=== PATIENT | male | born 1965 | race African-American/Black ===

== ENCOUNTER 2017-04-14 14:44 | Emergency (ER) | payer MEDICAID ==
[~2017-04-14] VITALS: Ht 170.2 cm; Wt 68.0 kg
[2017-04-14 15:03] VITALS: BP 154/98
== END 2017-04-14 19:33 | disposition left against medical advice (07) ==
LOC: ER 15:03
DX: M54.9 Dorsalgia, unspecified (principal); Z53.21 Procedure and treatment not carried out due to patient leaving prior to being seen by health care provider

== ENCOUNTER 2017-12-09 17:21 | Emergency (ER) | payer MEDICAID ==
[~2017-12-09] VITALS: Ht 182.9 cm; Wt 79.0 kg
[2017-12-09 17:22] VITALS: BP 139/84
== END 2017-12-09 21:45 | disposition left against medical advice (07) ==
LOC: ER 17:21
DX: Z53.21 Procedure and treatment not carried out due to patient leaving prior to being seen by health care provider (principal)
CPT/HCPCS: 82962

== ENCOUNTER 2020-01-12 17:34 | Inpatient (IN) | payer MEDICAID ==
[~2020-01-12] VITALS: Ht 180.3 cm; Wt 46.7 kg
[2020-01-12] MEDS ORDERED: PIPERACILLIN/TAZ 3.375G PREMIX 50 ML IV ONE (19:00)
[2020-01-12] MEDS ORDERED: VANCOMYCIN 1 G PREMIX 200 ML IV ONE (19:00)
[2020-01-12 19:22] LABS: CHLORIDE 117 mEq/L (98-107)
[2020-01-12 19:31] LABS: MEAN CORPUSCULAR HEMOGLOBIN 26.3 pg (28.0-32.0); MEAN CORPUSCULAR VOLUME 83.1 fL (80.0-94.0); MEAN PLATELET VOLUME 7.7 fl (7.4-10.4); PLATELET 266 x1000/uL (130-400); RED CELL DISTRIBUTION WIDTH 26.1 % (11.6-14.6)
[2020-01-12 19:39] LABS: INR 2.2; PARTIAL THROMBOPLASTIN TIME 33.1 sec (23.4-31.0); PROTHROMBIN TIME 22.4 sec (9.6-11.0)
[2020-01-12] MEDS ORDERED: SODIUM CHLORIDE 0.9% 1,000 ML IV ONE (20:05)
[2020-01-12] MEDS ORDERED: MORPHINE SULFATE 4 MG/ML CPJ (NOT FOR IM USE) IV STA (20:13)
[2020-01-12] MEDS ORDERED: ONDANSETRON HCL 4MG/2ML INJ IV STA (20:13)
[2020-01-12 20:39] LABS: HEMATOCRIT. 19.1 % (42.0-52.0); HEMOGLOBIN. 6.1 g/dL (14.0-18.0)
[2020-01-12 20:46] LABS: NUCLEATED RED BLOOD CELLS 2 /100 WBC; PLATELET ESTIMATE NORMAL
[2020-01-12 20:53] LABS: COLOR URINE DARK YELLOW (YELLOW)
[2020-01-12 20:54] LABS: CLARITY URINE CLOUDY (CLEAR); KETONES URINE NEGATIVE (NEGATIVE); NITRITE URINE NEGATIVE (NEGATIVE); OCCULT BLOOD URINE NEGATIVE (NEGATIVE); PH URINE 5.5 (4.5-8.0); PROTEIN URINE 1+ (NEGATIVE); SPECIFIC GRAVITY URINE 1.022 (1.005-1.030)
[2020-01-12 20:55] LABS: LEUKOCYTE ESTERASE URINE TRACE (NEGATIVE)
[2020-01-13 09:00] VITALS: BP 87/48
[2020-01-13] MEDS ORDERED: MIDODRINE HCL 5MG TABLET PO SCH ×2 (09:15→13:00)
[2020-01-13] MEDS: SODIUM CHLORIDE 0.45% 1,000 ML IV SCH ×2 (09:30→18:09)
[2020-01-13] MEDS ORDERED: MORP15TA67 MT (10:23)
[2020-01-13] MEDS ORDERED: MORP100T6 PO (10:23)
[2020-01-13] MEDS: PIPERACILLIN/TAZOBACTAM 2.25 G in DEXTROSE 5% WATER 50 ML IV SCH ×3 (11:14→22:21)
[2020-01-13 12:00] VITALS: BP 82/48
[2020-01-13] MEDS ORDERED: SODIUM CHLORIDE 0.9% 500 ML IV ONE ×2 (12:15→16:15)
[2020-01-13] MEDS: TRAMADOL 50MG TABLET PO PRN (13:40)
[2020-01-13] MEDS: PANTOPRAZOLE SODIUM 40 MG/VIAL IV SCH (15:44)
[2020-01-13 16:04] LABS: CHLORIDE 119 mEq/L (98-107)
[2020-01-13 16:23] LABS: TOTAL IRON BINDING CAPACITY 180 ug/dL (250-450)
[2020-01-13] MEDS: MIDODRINE HCL 5MG TABLET PO SCH (16:24)
[2020-01-13 16:25] LABS: HEMATOCRIT. 25.7 % (42.0-52.0); HEMOGLOBIN. 8.4 g/dL (14.0-18.0); MEAN CORPUSCULAR HEMOGLOBIN 27.4 pg (28.0-32.0); MEAN CORPUSCULAR VOLUME 83.9 fL (80.0-94.0); MEAN PLATELET VOLUME 7.9 fl (7.4-10.4); PLATELET 244 x1000/uL (130-400); RED BLOOD CELL COUNT 3.07 mill/uL (4.7-6.1); RED CELL DISTRIBUTION WIDTH 24.1 % (11.6-14.6)
[2020-01-13 16:40] VITALS: BP 102/62
[2020-01-13 17:40] VITALS: BP 100/67
[2020-01-13 17:47] LABS: NUCLEATED RED BLOOD CELLS 1 /100 WBC; PLATELET ESTIMATE NORMAL
[2020-01-13] MEDS ORDERED: ACETAMINOPHEN 325MG TABLET PO PRN (18:00)
[2020-01-13 20:00] VITALS: BP 98/67
[2020-01-13 21:00] LABS: OPIATES URINE SCREEN PRESUMTIVE POSITIVE (NEGATIVE)
[2020-01-13 21:01] LABS: *AMPHETAMINES SCREEN URINE NEGATIVE (NEGATIVE); *BARBITURATES SCREEN URINE NEGATIVE (NEGATIVE); *BENZODIAZEPINES SCREEN URINE NEGATIVE (NEGATIVE); *COCAINE SCREEN URINE NEGATIVE (NEGATIVE); CANNABINOID URINE SCREEN NEGATIVE (NEGATIVE); METHADONE URINE SCREEN NEGATIVE (NEGATIVE); PHENCYCLIDINE URINE SCREEN NEGATIVE (NEGATIVE)
[2020-01-13] MEDS: MORPHINE SULFATE 2 MG/ML CPJ (NOT FOR IM USE) IV PRN (22:23)
[2020-01-14] VITALS: BP 93/59
[2020-01-14 00:11] LABS: HEMATOCRIT 24.7 % (42.0-52.0)
[2020-01-14 04:00] VITALS: BP 98/67
[2020-01-14] MEDS: PIPERACILLIN/TAZOBACTAM 2.25 G in DEXTROSE 5% WATER 50 ML IV SCH ×2 (04:08→08:46)
[2020-01-14] MEDS: MORPHINE SULFATE 2 MG/ML CPJ (NOT FOR IM USE) IV PRN (04:09)
[2020-01-14 06:24] LABS: HEMOGLOBIN 8.4 g/dL (14.0-18.0)
[2020-01-14] MEDS: SODIUM CHLORIDE 0.45% 1,000 ML IV SCH ×3 (06:52→21:39)
[2020-01-14 08:00] VITALS: BP 117/76
[2020-01-14] MEDS: PANTOPRAZOLE SODIUM 40 MG/VIAL IV SCH (08:46)
[2020-01-14] MEDS: MIDODRINE HCL 5MG TABLET PO SCH ×3 (08:46→18:13)
[2020-01-14 11:40] VITALS: BP 108/70
[2020-01-14] MEDS ORDERED: DIATR MEGLU/DIATRIZOATE SOLN 30ML PO SCH (13:00)
[2020-01-14] MEDS: LOPERAMIDE HCL 2MG CAPSULE PO PRN ×2 (13:06→21:35)
[2020-01-14 14:26] LABS: CHLORIDE 117 mEq/L (98-107)
[2020-01-14 14:30] LABS: HEMATOCRIT. 24.9 % (42.0-52.0); HEMOGLOBIN. 8.1 g/dL (14.0-18.0); MEAN CORPUSCULAR HEMOGLOBIN 27.9 pg (28.0-32.0); MEAN CORPUSCULAR VOLUME 85.4 fL (80.0-94.0); MEAN PLATELET VOLUME 7.9 fl (7.4-10.4); PLATELET 201 x1000/uL (130-400); RED BLOOD CELL COUNT 2.92 mill/uL (4.7-6.1); RED CELL DISTRIBUTION WIDTH 23.9 % (11.6-14.6)
[2020-01-14] MEDS: PIPERACILLIN/TAZOBACTAM 3.375 G in DEXT 5% WATER 100 ML IV SCH ×2 (15:39→21:35)
[2020-01-14 16:00] VITALS: BP 128/71
[2020-01-14 18:55] LABS: HEMATOCRIT 25.2 % (42.0-52.0); HEMOGLOBIN 8.4 g/dL (14.0-18.0)
[2020-01-14] MEDS ORDERED: SODIUM BICARBONATE 8.4% 1 MEQ/ML 50ML SYR IV NR (19:00)
[2020-01-14 20:00] VITALS: BP 120/80
[2020-01-14 23:37] LABS: PLATELET ESTIMATE NORMAL
[2020-01-15] VITALS (13 sets, daily range): BP systolic 97–135; BP diastolic 58–80
[2020-01-15] MEDS: PIPERACILLIN/TAZOBACTAM 3.375 G in DEXT 5% WATER 100 ML IV SCH (03:04)
[2020-01-15] MEDS: LOPERAMIDE HCL 2MG CAPSULE PO PRN (06:49)
[2020-01-15 07:21] LABS: CHLORIDE 115 mEq/L (98-107)
[2020-01-15 07:26] LABS: HEMATOCRIT. 22.3 % (42.0-52.0); HEMOGLOBIN. 7.4 g/dL (14.0-18.0); MEAN CORPUSCULAR HEMOGLOBIN 27.1 pg (28.0-32.0); MEAN CORPUSCULAR VOLUME 82.2 fL (80.0-94.0); MEAN PLATELET VOLUME 7.7 fl (7.4-10.4); PLATELET 140 x1000/uL (130-400); RED BLOOD CELL COUNT 2.72 mill/uL (4.7-6.1)
[2020-01-15] MEDS: SODIUM CHLORIDE 0.45% 1,000 ML IV SCH ×2 (10:19→21:10)
[2020-01-15] MEDS: PANTOPRAZOLE SODIUM 40 MG/VIAL IV SCH (10:20)
[2020-01-15] MEDS: MIDODRINE HCL 5MG TABLET PO SCH ×3 (10:21→19:02)
[2020-01-15] MEDS ORDERED: POTASSIUM CHLORIDE INJ 40 MEQ in DEXT 5% WATER 250 ML IV SCH (11:00)
[2020-01-15 13:17] LABS: PLATELET ESTIMATE NORMAL
[2020-01-15] MEDS: CEFEPIME 1,000 MG in DEXTROSE 5% WATER 50 ML IV SCH ×2 (14:00→22:42)
[2020-01-15] MEDS: METRONIDAZOLE 500 MG PREMIX 100 ML IV SCH ×2 (14:00→21:53)
[2020-01-15] MEDS: MORPHINE SULFATE 2 MG/ML CPJ (NOT FOR IM USE) IV PRN (16:28)
[2020-01-15 23:09] LABS: HEMOGLOBIN 9.6 g/dL (14.0-18.0)
[2020-01-16] VITALS: BP 114/73
[2020-01-16] MEDS: TRAMADOL 50MG TABLET PO PRN (01:25)
[2020-01-16 04:00] VITALS: BP 117/71
[2020-01-16] MEDS: METRONIDAZOLE 500 MG PREMIX 100 ML IV SCH ×3 (06:36→22:17)
[2020-01-16] MEDS: SODIUM CHLORIDE 0.45% 1,000 ML IV SCH ×2 (06:44→17:45)
[2020-01-16 08:00] VITALS: BP 117/69
[2020-01-16] MEDS: PANTOPRAZOLE SODIUM 40 MG/VIAL IV SCH (09:04)
[2020-01-16] MEDS: CEFEPIME 1,000 MG in DEXTROSE 5% WATER 50 ML IV SCH ×2 (09:04→21:39)
[2020-01-16] MEDS: MIDODRINE HCL 5MG TABLET PO SCH ×3 (09:05→17:43)
[2020-01-16 11:22] LABS: HEMATOCRIT. 27.1 % (42.0-52.0); MEAN CORPUSCULAR VOLUME 84.2 fL (80.0-94.0); MEAN PLATELET VOLUME 8.2 fl (7.4-10.4); PLATELET 72 x1000/uL (130-400); RED BLOOD CELL COUNT 3.22 mill/uL (4.7-6.1)
[2020-01-16 11:53] LABS: CHLORIDE 114 mEq/L (98-107)
[2020-01-16 12:00] VITALS: BP 114/80
[2020-01-16] MEDS ORDERED: POTASSIUM CHLORIDE 20MEQ TABLET SR PO SCH (13:30)
[2020-01-16] MEDS ORDERED: DIATR MEGLU/DIATRIZOATE SOLN 30ML PO SCH (15:15)
[2020-01-16 16:00] VITALS: BP 105/70
[2020-01-16] MEDS: MORPHINE SULFATE 2 MG/ML CPJ (NOT FOR IM USE) IV PRN (17:44)
[2020-01-16] MEDS ORDERED: FILGRASTIM 300 MCG/ML VIAL SUBCUT SCH (18:00)
[2020-01-16 20:00] VITALS: BP 111/77
[2020-01-16] MEDS: FILGRASTIM-TBO 300 MCG/0.5 ML SYRINGE SQ SCH (21:39)
[2020-01-16 22:01] LABS: PLATELET ESTIMATE DECREASED
[2020-01-17] VITALS: BP 97/67
[2020-01-17] MEDS ORDERED: IOHEXOL-300 100 ML BOTTLE ONE (00:42)
[2020-01-17 04:00] VITALS: BP 102/71
[2020-01-17] MEDS: METRONIDAZOLE 500 MG PREMIX 100 ML IV SCH ×3 (05:06→22:59)
[2020-01-17] MEDS: SODIUM CHLORIDE 0.45% 1,000 ML IV SCH (05:06)
[2020-01-17] MEDS: MORPHINE SULFATE 2 MG/ML CPJ (NOT FOR IM USE) IV PRN ×3 (05:15→14:26)
[2020-01-17 07:51] LABS: CHLORIDE 118 mEq/L (98-107); HEMATOCRIT. 27.5 % (42.0-52.0); HEMOGLOBIN. 9.2 g/dL (14.0-18.0); MEAN CORPUSCULAR HEMOGLOBIN 28.2 pg (28.0-32.0); MEAN CORPUSCULAR VOLUME 84.4 fL (80.0-94.0); MEAN PLATELET VOLUME 8.5 fl (7.4-10.4); RED BLOOD CELL COUNT 3.26 mill/uL (4.7-6.1); RED CELL DISTRIBUTION WIDTH 23.1 % (11.6-14.6)
[2020-01-17 08:00] VITALS: BP 93/63
[2020-01-17 08:06] LABS: PLATELET 31 x1000/uL (130-400)
[2020-01-17] MEDS ORDERED: POTASSIUM CHLORIDE 20MEQ/PACKET PO SCH (09:00)
[2020-01-17] MEDS: PANTOPRAZOLE SODIUM 40 MG/VIAL IV SCH (09:00)
[2020-01-17] MEDS: MIDODRINE HCL 5MG TABLET PO SCH ×3 (09:01→16:57)
[2020-01-17] MEDS: CEFEPIME 1,000 MG in DEXTROSE 5% WATER 50 ML IV SCH ×2 (09:02→20:42)
[2020-01-17 12:00] VITALS: BP 116/84
[2020-01-17] MEDS ORDERED: SODIUM BICARBONATE 8.4% 1 MEQ/ML 50ML SYR IV SCH (12:15)
[2020-01-17] MEDS ORDERED: ONDANSETRON HCL 4MG/2ML INJ IV PRN (12:30)
[2020-01-17 13:37] LABS: PLATELET ESTIMATE MARKEDLY DECREASED
[2020-01-17 16:00] VITALS: BP 117/82
[2020-01-17] MEDS: SODIUM BICARBONATE 150 MEQ in DEXTROSE 5% WATER 1,000 ML IV SCH (16:43)
[2020-01-17 20:00] VITALS: BP 123/90
[2020-01-17] MEDS: FILGRASTIM-TBO 300 MCG/0.5 ML SYRINGE SQ SCH (20:42)
[2020-01-17] MEDS: ZOLPIDEM TARTRATE 5MG TABLET PO PRN (20:55)
[2020-01-17] MEDS: METOCLOPRAMIDE HCL 10MG/2ML VIAL IV PRN (21:18)
[2020-01-18] VITALS (7 sets, daily range): BP systolic 93–120; BP diastolic 59–80
[2020-01-18] MEDS: SODIUM BICARBONATE 150 MEQ in DEXTROSE 5% WATER 1,000 ML IV SCH ×2 (04:48→15:07)
[2020-01-18] MEDS: METRONIDAZOLE 500 MG PREMIX 100 ML IV SCH ×3 (05:09→22:44)
[2020-01-18 06:17] LABS: HEMOGLOBIN. 8.5 g/dL (14.0-18.0); MEAN CORPUSCULAR VOLUME 82.1 fL (80.0-94.0); MEAN PLATELET VOLUME 8.6 fl (7.4-10.4); RED BLOOD CELL COUNT 3.04 mill/uL (4.7-6.1); RED CELL DISTRIBUTION WIDTH 23.3 % (11.6-14.6)
[2020-01-18 06:29] LABS: CHLORIDE 114 mEq/L (98-107)
[2020-01-18] MEDS: PANTOPRAZOLE SODIUM 40 MG/VIAL IV SCH (08:40)
[2020-01-18] MEDS: MULTIVITAMINS,THER W-MINERALS TABLET PO SCH ×2 (08:40→09:00)
[2020-01-18] MEDS: MIDODRINE HCL 5MG TABLET PO SCH ×3 (08:41→16:36)
[2020-01-18] MEDS: CEFEPIME 1,000 MG in DEXTROSE 5% WATER 50 ML IV SCH ×2 (08:41→21:35)
[2020-01-18] MEDS ORDERED: POTASSIUM CHLORIDE 20MEQ TABLET SR PO NR (09:00)
[2020-01-18] MEDS ORDERED: POTASSIUM CHLORIDE INJ 40 MEQ in DEXT 5% WATER 250 ML IV NR (10:00)
[2020-01-18] MEDS: METOCLOPRAMIDE HCL 10MG/2ML VIAL IV PRN ×2 (11:06→21:35)
[2020-01-18] MEDS: POTASSIUM CHLORIDE 20MEQ TABLET SR PO NR ×2 (12:00→13:09)
[2020-01-18 13:25] LABS: NUCLEATED RED BLOOD CELLS 8 /100 WBC; PLATELET ESTIMATE MARKEDLY DECREASED
[2020-01-18] MEDS: ZOLPIDEM TARTRATE 5MG TABLET PO PRN (21:35)
[2020-01-18] MEDS: LOPERAMIDE HCL 2MG CAPSULE PO PRN (21:35)
[2020-01-18] MEDS: FILGRASTIM-TBO 300 MCG/0.5 ML SYRINGE SQ SCH (21:35)
[2020-01-19 01:14] VITALS: BP 124/82
[2020-01-19] MEDS: SODIUM BICARBONATE 150 MEQ in DEXTROSE 5% WATER 1,000 ML IV SCH (02:15)
[2020-01-19 04:00] VITALS: BP 117/82
[2020-01-19] MEDS: METRONIDAZOLE 500 MG PREMIX 100 ML IV SCH ×2 (05:20→15:16)
[2020-01-19 07:21] LABS: CHLORIDE 113 mEq/L (98-107)
[2020-01-19 07:24] LABS: HEMATOCRIT. 24.7 % (42.0-52.0); HEMOGLOBIN. 8.3 g/dL (14.0-18.0); MEAN CORPUSCULAR HEMOGLOBIN 27.8 pg (28.0-32.0); MEAN CORPUSCULAR VOLUME 82.2 fL (80.0-94.0); MEAN PLATELET VOLUME 9.4 fl (7.4-10.4); RED CELL DISTRIBUTION WIDTH 22.7 % (11.6-14.6)
[2020-01-19 07:54] LABS: PLATELET 22 x1000/uL (130-400)
[2020-01-19 08:00] VITALS: BP 112/81
[2020-01-19] MEDS ORDERED: POTASSIUM CHLORIDE INJ 60 MEQ in DEXT 5% WATER 500 ML IV NR (09:00)
[2020-01-19] MEDS: PANTOPRAZOLE SODIUM 40 MG/VIAL IV SCH (09:03)
[2020-01-19] MEDS: MIDODRINE HCL 5MG TABLET PO SCH ×2 (09:03→13:42)
[2020-01-19] MEDS: MULTIVITAMINS,THER W-MINERALS TABLET PO SCH (09:03)
[2020-01-19] MEDS: CEFEPIME 1,000 MG in DEXTROSE 5% WATER 50 ML IV SCH (09:04)
[2020-01-19] MEDS ORDERED: DEXT 5%/0.45% NACL 1000ML 1,000 ML IV SCH (10:30)
[2020-01-19 12:00] VITALS: BP 92/60
[2020-01-19 12:59] LABS: PLATELET 22 x1000/uL (130-400)
[2020-01-19] MEDS ORDERED: MIDO5TAB4 PO (13:43)
[2020-01-19] MEDS ORDERED: HYDR-4009 MT (13:43)
[2020-01-19] MEDS ORDERED: MORP30TA54 MT (13:43)
[2020-01-19] MEDS ORDERED: POTA20TA82 MT (13:43)
[2020-01-19] MEDS ORDERED: POTASSIUM CHLORIDE 20MEQ TABLET SR PO NR (14:00)
[2020-01-19 15:30] VITALS: BP 92/60
[2020-01-19 16:00] VITALS: BP 96/61
[2020-01-20 11:34] LABS: NUCLEATED RED BLOOD CELLS 3 /100 WBC; PLATELET ESTIMATE MARKEDLY DECREASED
== END 2020-01-19 18:10 | disposition home or self-care (01) | DRG 720 ==
LOC: ER 17:34 → MICUSO 20:36 → EDBEDREQTM 20:43 → EDBEDREQ 20:43 → 7WST 01-13 08:07 → 5WST 01-14 10:38
PROVIDERS: ADMIT Internal Medicine; ATTEND Internal Medicine
PROC: 30233N1 Transfusion of Nonautologous Red Blood Cells into Peripheral Vein, Percutaneous Approach (ICD-10-PCS; principal; 2020-01-12)
DX: A41.9 Sepsis, unspecified organism (principal); R65.21 Severe sepsis with septic shock; N17.0 Acute kidney failure with tubular necrosis; E43 Unspecified severe protein-calorie malnutrition; C16.9 Malignant neoplasm of stomach, unspecified; D50.9 Iron deficiency anemia, unspecified; E11.9 Type 2 diabetes mellitus without complications; E87.8 Other disorders of electrolyte and fluid balance, not elsewhere classified; I10 Essential (primary) hypertension; Z20.828 Contact with and (suspected) exposure to other viral communicable diseases; T45.1X5A Adverse effect of antineoplastic and immunosuppressive drugs, initial encounter; E86.1 Hypovolemia; K56.600 Partial intestinal obstruction, unspecified as to cause; C77.2 Secondary and unspecified malignant neoplasm of intra-abdominal lymph nodes; K22.8 Other specified diseases of esophagus; Z51.5 Encounter for palliative care; K52.9 Noninfective gastroenteritis and colitis, unspecified; D61.818 Other pancytopenia; I95.9 Hypotension, unspecified; C78.00 Secondary malignant neoplasm of unspecified lung; C79.51 Secondary malignant neoplasm of bone; Z85.028 Personal history of other malignant neoplasm of stomach; Z68.1 Body mass index [BMI] 19.9 or less, adult; Z79.899 Other long term (current) drug therapy
CPT/HCPCS: 36415; 71045; 74018; 74177; 80048; 80053; 80305; 81003; 82270; 82378; 82728; 82962; 83540; 83550; 83605; 83735; 83880; 84145; 84484; 85014; 85018; 85025; 86850; 86900; 86920; 87015; 87045; 87427; 87449; 87493; 87635; 93005; 96365; 99291; C9113; J0692; J1442; J2270; J2405; J2543; J2765; J3370; J3480; J3490; J7030; J7060; J7070; P9016; Q9963; Q9967